=== PATIENT | female | born 1955 | race Caucasian/White ===

== ENCOUNTER 2019-04-21 14:26 | Emergency (ER) | payer OTHER ==
[~2019-04-21] VITALS: Ht 165.1 cm; Wt 63.5 kg
== END 2019-04-21 22:08 | disposition designated cancer center or children's hospital (05) ==
LOC: ER 14:26
DX: S02.40CA Maxillary fracture, right side, initial encounter for closed fracture (principal); S52.091A Other fracture of upper end of right ulna, initial encounter for closed fracture; S01.121A Laceration with foreign body of right eyelid and periocular area, initial encounter; M25.551 Pain in right hip; W18.39XA Other fall on same level, initial encounter; Y93.89 Activity, other specified; Y92.488 Other paved roadways as the place of occurrence of the external cause; Y99.8 Other external cause status